=== PATIENT | male | born 1965 | race Caucasian/White ===

== ENCOUNTER 2017-08-01 19:01 | Emergency (ER) | payer MEDICARE, MEDICAID ==
[~2017-08-01] VITALS: Ht 185.4 cm; Wt 120.1 kg
[2017-08-01] MEDS ORDERED: ACETAMINOPHEN 500 MG TABLET PO ONE (19:30)
[2017-08-01] MEDS ORDERED: SODIUM CHLORIDE 0.9% 1,000ML IVBOLUS ONE (19:30)
[2017-08-01] MEDS ORDERED: SODIUM CHLORIDE FLUSH 10ML SYR IVF ONE (19:30)
[2017-08-01 19:49] LABS: BASOPHILS # (AUTO) 0.03 x10^3/uL (0-0.1); BASOPHILS % (AUTO) 0 % (0-1); EOSINOPHILS # (AUTO) 0.12 x10^3/uL (0-0.4); EOSINOPHILS % (AUTO) 1 % (1-7); LYMPHOCYTES # (AUTO) 2.56 x10^3/uL (1-3.4); LYMPHOCYTES % (AUTO) 30 % (22-44); MD NO; MEAN CORPUSCULAR HEMOGLOBIN 33.1 pg (27.5-34.5); MEAN CORPUSCULAR HGB CONC 33.7 g/dL (33.2-36.2); MEAN CORPUSCULAR VOLUME 98.3 fL (81-97); MEAN PLATELET VOLUME 8.2 fL (7.4-10.4); MONOCYTES # (AUTO) 0.75 x10^3/uL (0.2-0.8); MONOCYTES % (AUTO) 9 % (2-9); NEUTROPHILS # (AUTO) 5.13 x10^3/uL (1.8-6.8); NEUTROPHILS % (AUTO) 60 % (42-75); PLATELET COUNT 166 x10^3/uL (130-400); RED BLOOD COUNT 4.38 x10^6/uL (4.38-5.82); RED CELL DISTRIBUTION WIDTH 13.4 % (9.4-14.8)
[2017-08-01] MEDS ORDERED: LOSA25TA5 PO (19:49)
[2017-08-01] MEDS ORDERED: VENL25TA PO (19:49)
[2017-08-01] MEDS ORDERED: ATOR10TA9 PO (19:49)
[2017-08-01] MEDS ORDERED: ABAC1TAB14 PO (19:49)
[2017-08-01] MEDS ORDERED: ALLO300T PO (19:49)
[2017-08-01 20:00] LABS: ALANINE AMINOTRANSFERASE 36 U/L (12-78); ALBUMIN 3.9 g/dL (3.4-5.0); ANION GAP 8 mmol/L (5-15); CALCIUM 8.4 mg/dL (8.5-10.1); CHLORIDE 105 mmol/L (98-107); CREATININE 1.36 mg/dL (0.7-1.3)
[2017-08-01] MEDS ORDERED: ACETAMINOPHEN 500 MG TABLET ONE (20:00)
[2017-08-01 20:02] LABS: ALKALINE PHOSPHATASE 166 U/L (45-117); BILIRUBIN,TOTAL 0.3 mg/dL (0.2-1.0); TOTAL PROTEIN 7.9 g/dL (6.4-8.2)
[2017-08-01 20:52] LABS: MICROSCOPIC NOT IND
[2017-08-01 20:56] LABS: CULTURE INDICATED? NO
[2017-08-01 21:12] VITALS: BP 132/80
== END 2017-08-01 21:17 | disposition home or self-care (01) ==
LOC: ED 21:11
DX: B34.9 Viral infection, unspecified (principal); I10 Essential (primary) hypertension; E78.00 Pure hypercholesterolemia, unspecified; J43.9 Emphysema, unspecified
CPT/HCPCS: 36415; 71045; 80053; 81003; 83605; 85025; 99285

== ENCOUNTER 2019-02-16 11:44 | Emergency (ER) | payer MEDICARE, MEDICAID ==
[~2019-02-16] VITALS: Ht 185.4 cm; Wt 117.0 kg
[~2019-02-16 11:44] MED LIST: ABAC1TAB14 PO; ALLO300T PO; ATOR10TA9 PO; LOSA25TA25 PO; VENL25TA PO
--- NOTE | 2019-02-16 12:02 | NUR ---
FIRST CONTACT WITH PT. PT STATES "YESTERDAY I STARTED GETTING ABDOMINAL PAIN. IT STARTS ON MY LOWER LEFT BACK AND COMES AROUND." PT C/O LLQ ABD PAIN AND LEFT LOWER BACK PAIN WITH DSade NORTHIES N/V. PT'S AOX4. RESPS EVEN AND UNLABORED. BP/SPO2 MONITORS IN PLACE. CALL LIGHT WITHIN REACH.
--- NOTE | 2019-02-16 12:12 | NUR ---
EDMD AT BEDSIDE TO EVALUATE AT THIS TIME.
--- NOTE | 2019-02-16 12:18 | NUR ---
PT IS NOT ABLE TO PROVIDE URINE SAMPLE AT THIS TIME. URINE CUP AT BEDSIDE. PT AWARE OF UA.
[2019-02-16 12:35] LABS: BASOPHILS # (AUTO) 0.03 x10^3/uL (0-0.1); BASOPHILS % (AUTO) 0 % (0-1); EOSINOPHILS # (AUTO) 0.12 x10^3/uL (0-0.4); EOSINOPHILS % (AUTO) 1 % (1-7); LYMPHOCYTES % (AUTO) 37 % (22-44); MD NO; MEAN CORPUSCULAR HEMOGLOBIN 32.7 pg (27.5-34.5); MEAN CORPUSCULAR VOLUME 99.1 fL (81-97); MEAN PLATELET VOLUME 7.7 fL (7.4-10.4); MONOCYTES # (AUTO) 0.66 x10^3/uL (0.2-0.8); MONOCYTES % (AUTO) 8 % (2-9); NEUTROPHILS # (AUTO) 4.65 x10^3/uL (1.8-6.8); NEUTROPHILS % (AUTO) 54 % (42-75); PLATELET COUNT 176 x10^3/uL (130-400); RED BLOOD COUNT 4.67 x10^6/uL (4.38-5.82)
[2019-02-16 12:40] LABS: ALANINE AMINOTRANSFERASE 25 U/L (12-78); ANION GAP 7 mmol/L (5-15); CALCIUM 8.6 mg/dL (8.5-10.1); CHLORIDE 107 mmol/L (98-107); CREATININE 1.29 mg/dL (0.7-1.3)
[2019-02-16 12:43] LABS: ALKALINE PHOSPHATASE 126 U/L (45-117); TOTAL PROTEIN 8.1 g/dL (6.4-8.2)
--- NOTE | 2019-02-16 12:45 | NUR ---
PT AMB TO BR AND BACK TO ROOM WITH STEADY GAIT FOR UA. UA SENT.
[2019-02-16 13:00] LABS: MICROSCOPIC AUTO
[2019-02-16 13:07] LABS: CULTURE INDICATED? YES
--- NOTE | 2019-02-16 13:09 | NUR ---
LUNCH RN: IV PLACED FOR CT SCAN. PT BEING TAKEN TO CT AT THIS TIME.
[2019-02-16] MEDS ORDERED: OMNIPAQUE 350 MG/ML, 100ML BOTTLE ONE (13:32)
[2019-02-16] MEDS ORDERED: DICYCLOMINE 10 MG/ML, 2ML ONE (14:18)
--- NOTE | 2019-02-16 14:23 | NUR ---
PT MEDICATED PER EMAR. PT TOLERATED WELL.
[2019-02-16] MEDS ORDERED: DICYCLOMINE 10 MG/ML, 2ML IM ONE (14:30)
[2019-02-16 15:30] VITALS: BP 121/81
--- NOTE | 2019-02-16 15:32 | NUR ---
Patient given discharge instructions and they have confirmed that they understand the instructions. Patient ambulatory with steady gait.
== END 2019-02-16 15:33 | disposition home or self-care (01) ==
LOC: ED 12:51
DX: K52.9 Noninfective gastroenteritis and colitis, unspecified (principal); I10 Essential (primary) hypertension; E78.00 Pure hypercholesterolemia, unspecified; F17.200 Nicotine dependence, unspecified, uncomplicated; Z21 Asymptomatic human immunodeficiency virus [HIV] infection status; Z90.89 Acquired absence of other organs
CPT/HCPCS: 36415; 74177; 80053; 81001; 83690; 85025; 87086; 96372; 99284; J0500; Q9967

== ENCOUNTER 2019-07-28 10:13 | Emergency (ER) | payer MEDICARE, MEDICAID ==
[~2019-07-28] VITALS: Ht 185.4 cm; Wt 119.2 kg
--- NOTE | 2019-07-28 10:58 | NUR ---
PT WITH LEFT MID CHEST PAIN, X "FEW DAYS" WORSE TODAY. TIGHTNESS WITH INTERMITTANT SHARP PAIN. +SOB X 1 MONTH. TEST NEG FOR COVID 07/01/19. PT ON ALL MONITORS, LABS DRAWN. ORDERS REV WITH PT AND QUESTIONS ANSWERED. CALL LIGHT W/I REACH.
--- NOTE | 2019-07-28 10:59 | NUR ---
SBAR RPT TO JO WYATT
[2019-07-28] MEDS ORDERED: ASPIRIN 81 MG TABLET CHEW ONE (11:00)
[2019-07-28] MEDS ORDERED: ASPIRIN 81 MG TABLET CHEW PO ONE (11:00)
[2019-07-28 11:22] LABS: BASOPHILS # (AUTO) 0.04 x10^3/uL (0-0.1); BASOPHILS % (AUTO) 0 % (0-1); EOSINOPHILS # (AUTO) 0.16 x10^3/uL (0-0.4); EOSINOPHILS % (AUTO) 2 % (1-7); LYMPHOCYTES # (AUTO) 4.79 x10^3/uL (1-3.4); LYMPHOCYTES % (AUTO) 47 % (22-44); MD NO; MEAN CORPUSCULAR HEMOGLOBIN 32.5 pg (27.5-34.5); MEAN CORPUSCULAR HGB CONC 33.3 g/dL (33.2-36.2); MEAN CORPUSCULAR VOLUME 97.5 fL (81-97); MEAN PLATELET VOLUME 8.3 fL (7.4-10.4); MONOCYTES # (AUTO) 0.63 x10^3/uL (0.2-0.8); MONOCYTES % (AUTO) 6 % (2-9); NEUTROPHILS # (AUTO) 4.64 x10^3/uL (1.8-6.8); NEUTROPHILS % (AUTO) 45 % (42-75); PLATELET COUNT 216 x10^3/uL (130-400); RED BLOOD COUNT 4.67 x10^6/uL (4.38-5.82); RED CELL DISTRIBUTION WIDTH 13.6 % (9.4-14.8)
[2019-07-28 11:33] LABS: ALANINE AMINOTRANSFERASE 26 U/L (12-78); ALBUMIN 3.9 g/dL (3.4-5.0); ANION GAP 8 mmol/L (5-15); CALCIUM 9.1 mg/dL (8.5-10.1); CHLORIDE 109 mmol/L (98-107); CREATININE 1.21 mg/dL (0.7-1.3)
[2019-07-28 11:38] LABS: ALKALINE PHOSPHATASE 171 U/L (45-117); BILIRUBIN,TOTAL 0.4 mg/dL (0.2-1.0); TROPONIN I < 0.015 ng/mL (0.000-0.045)
--- NOTE | 2019-07-28 11:42 | NUR ---
ALL RESULTS ARE BACK AT THIS TIME. CHART UP FOR RECHECK.
--- NOTE | 2019-07-28 11:58 | NUR ---
REPEAT TROPONIN AT 1330.
--- NOTE | 2019-07-28 12:03 | NUR ---
Assumed care from Anupama OSORIO.
--- NOTE | 2019-07-28 13:56 | NUR ---
REPORT FROM JO RAMIREZ. PT CARE RESPONSIBILITIES ASSUMED.
[2019-07-28 14:10] LABS: TROPONIN I < 0.015 ng/mL (0.000-0.045)
[2019-07-28 14:45] VITALS: BP 126/83
== END 2019-07-28 14:47 | disposition home or self-care (01) ==
LOC: ED 11:24
DX: R07.2 Precordial pain (principal); R06.02 Shortness of breath; R00.0 Tachycardia, unspecified; I10 Essential (primary) hypertension; E78.5 Hyperlipidemia, unspecified; J43.9 Emphysema, unspecified; E78.00 Pure hypercholesterolemia, unspecified; Z21 Asymptomatic human immunodeficiency virus [HIV] infection status; Z90.89 Acquired absence of other organs
CPT/HCPCS: 36415; 71045; 80053; 84484; 85025; 93005; 99285